=== PATIENT | male | born 1990 | race Caucasian/White ===

== ENCOUNTER 2022-11-17 07:38 | Emergency (ER) | payer BC, SELFPAY ==
[2022-11-17 07:47] VITALS: BP 136/87; PULSE 80; RESP 18; TEMP 36.8; O2SAT 98; BMI 27.3
--- NOTE | 2022-11-17 08:19 | ED.GENADULT ---
HPI - General Adult General Time Seen by Provider: 08:20 Date Seen: 11/17/22 Chief complaint: Extremity Pain/Injury, Upper Stated complaint: left shoulder pain Time Seen by Provider: 11/17/22 08:08 Source: patient Mode of arrival: ambulatory Limitations: no limitations History of Present Illness HPI narrative: Patient is a 32 year old male presenting emergency department for left shoulder pain. He says he woke up this morning with the discomfort. He says of intermittent sharp pain that seems to occur with random movements any cannot specify certain actions that causes the pain to occur. At rest he says there is some soreness. States is all over to his left shoulder and the shooting pains will move around the shoulder depending on the movement. 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 Denies any injuries to the shoulder that he is aware of. He has never had issues with this shoulder in the past. Says the pain sometimes does radiate to his chest but mostly his left upper chest right underneath his collarbone. He has previously broken collarbone several years ago. Denies shortness of breath, lightheadedness, dizziness, numbness, weakness. States he took some Tylenol and 400 mg of ibuprofen over 3 hours ago Related Data Home Medications Medication Instructions Recorded Confirmed No Known Home Medications 11/17/22 11/17/22 Allergies Allergy/AdvReac Type Severity Reaction Status Date / Time amoxicillin AdvReac Intermediate Rash Verified 11/17/22 07:47 Review of Systems Status of ROS: Reports: 10 or more systems reviewed and unremarkable except as noted in History and below PFSH PFSH Social History Smoking Status: Never smoker How often do you have a drink containing alcohol: 2-4 times a month AUDIT-C Alcohol total score: 2 Non-prescribed substance use: denies use Exam Narrative: Exam Narrative: Const: Well-nourished, Well-developed, in mild distress Eyes: PERRL, no conjunctival injection, and symmetrical lids ENMT: Atraumatic external nose and ears. Moist mucous membranes. Neck: Symmetric, trachea midline, No thyromegaly. CVS: RRR, No murmurs or gallops. Peripheral pulses 2+ and equal in all extremities RESP: Unlabored respiratory effort. Clear to auscultation bilaterally. GI: Nontender/Nondistended, No rebound or guarding. MSK:Extremities w/o deformity, Normal Active ROM, no tenderness to palpation, was able to elicit discomfort when releasing the empty can test Skin: Warm, Dry. No rashes or lesions. Neuro: Normal Muscle tone, No focal neurological deficits. Psych: Awake, Alert, & Oriented x3. Appropriate mood and affect. Const: Vital Signs, click to edit/add: Vital Signs - 24 hr 11/17/22 07:47 11/17/22 08:41 Temperature 98.3 F Pulse Rate [Pulse Oximeter] 80 74 Respiratory Rate 18 16 [facility] 136/87 Pulse Oximetry 98 96 Oxygen Delivery Me thod Room Air Room Air Course Vital Signs Vital signs: Initial Vital Signs Temperature 98.3 F 11/17/22 07:47 Temperature Source Temporal Artery Scan 11/17/22 07:47 Pulse Rate 80 11/17/22 07:47 Respiratory Rate 18 11/17/22 07:47 Blood Pressure 136/87 11/17/22 07:47 Blood Pressure Mean 103 11/17/22 07:47 Blood Pressure Position Semi-Fowlers 11/17/22 07:47 Pulse Oximetry 98 11/17/22 07:47 Oxygen Delivery Method Room Air 11/17/22 07:47 Vital Signs Temperature 98.3 F 11/17/22 07:47 Pulse Rate 80 11/17/22 07:47 Respiratory Rate 18 11/17/22 07:47 Blood Pressure 136/87 11/17/22 07:47 Pulse Oximetry 98 11/17/22 07:47 Oxygen Delivery Method Room Air 11/17/22 07:47 Temperature 98.3 F 11/17/22 07:47 Pulse Rate 74 11/17/22 08:41 Respiratory Rate 16 11/17/22 08:41 Blood Pressure 136/87 11/17/22 07:47 Pulse Oximetry 96 11/17/22 08:41 Oxygen Delivery Method Room Air 11/17/22 08:41 Medical Decision Making MDM Narrative Medical decision making narrative: Patient is a 32-year-old male presenting for left shoulder pain. He does state he has some chest pain but all the pain he is having some left upper chest right below his collarbone and uses all the pain is coming from his shoulder. 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 No other recent heavy lifting. He has discomfort to the shoulder but he cannot state any specific actions that make it worse and he states it feels more like random movements will cause the pain. No numbness or weakness. They did do an EKG for his chest pain was showed no concerning abnormalities. Rest of the story does not sound to be cardiac in nature at all in sounds like all his minimal chest pain as radiating from the left shoulder I do not believe a further workup of this is necessary at this time. Will moving his shoulder I was able to elicit some discomfort and he did notice the worst was after releasing the empty can test. It does sound like he is having some tendonitis in a dose of Toradol was given. X-ray of the left shoulder was ordered. X-ray of the shoulder shows a mildly widened AC joint. It is unclear if this is from a previous injury since he has previously broken the collarbone but is nonspecific at this time. It is consistent with his symptoms. He has never been told he had a widened AC joint in the past. No known recent injuries to the shoulder. Patient's pain did not improve with the Toradol but he is otherwise doing well and discharged home. I informed him that if his symptoms continue follow-up with orthopedics. I also given a sling and tones only use it if her shoulder is giving very fatigued and sore otherwise he needs to keep the shoulder active. Imaging Data Left shoulder x-ray: Radiologist's impression: Indication: Pain Technique: Three views Comparison: None Findings: Chronic healed fracture deformity of the mid left clavicle. Slightly widened acromioclavicular distance with normal alignment of lateral clavicle with the acromion. Normal coracoclavicular distance. No acute fracture or dislocation. No specific soft tissue abnormality. Impression: No acute fracture or dislocation. Chronic healed left clavicular fracture deformity. Slightly widened acromioclavicular distance, nonspecific. Recommend clinical correlation as to possible injury involving the acromioclavicular joint. Consider orthopedic referral if there is ongoing clinical concern. ECG Data Attestation: I personally reviewed and interpreted this ECG as follows: (Normal sinus rhythm rate of 78 beats per minute, normal intervals, normal axis, no ST or T-wave abnormalities) Prior ECG tracings: not available for review Discharge Plan Discharge Clinical Impression: Acute shoulder pain Qualifiers: Laterality: left Qualified Code(s): M25.512 - Pain in left shoulder Patient Disposition: Home, Self-Care Condition: Stable Instructions: Shoulder Pain (ED) Additional Instructions: Follow-up with orthopedics if the symptoms continue. Take Tylenol and ibuprofen for pain. Your x-ray showed they do might have a widened AC joint but this is nonspecific it is unclear if this is acute or chronic. We will give you a sling to use but only use the sling if you shoulder has been going very fatigued and sore otherwise is important to keep the shoulder mobile Prescriptions: No Action No Known Home Medications Follow Up/Referrals: Provider,Not a Local [Primary Care Provider] - Stand Alone Forms: dINK Info Instructions
--- NOTE | 2022-11-17 08:20 | XR_ITS ---
Final Report Patient: ANA VICK Facility:?[facility] Patient ID:?[id number] Site Patient ID:?[id number]. Site :?[id number] Study:?XRay Shoulder Left 3 VIEW-11/17/2022 8:33:57 AM Ordering Physician:?Taras Ambrose Final Report: Indication: Pain Technique: Three views Comparison: None Findings: Chronic healed fracture deformity of the mid left clavicle. Slightly widened acromioclavicular distance with normal alignment of lateral clavicle with the acromion. Normal coracoclavicular distance. No acute fracture or dislocation. No specific soft tissue abnormality. Impression: No acute fracture or dislocation. Chronic healed left clavicular fracture deformity. Slightly widened acromioclavicular distance, nonspecific. Recommend clinical correlation as to possible injury involving the acromioclavicular joint. Consider orthopedic referral if there is ongoing clinical concern. Dictated by Jer Jimenez MD @ 11/17/2022 9:10:19 AM (Electronic Signature)
[2022-11-17] MEDS: KETOROLAC 30 MG/ML inj IM (08:27)
[2022-11-17 08:41] VITALS: PULSE 74; RESP 16; O2SAT 96
== END 2022-11-17 09:59 | disposition home or self-care (01) ==
PROVIDERS: Emergency Provider Student in an Organized Health Care Education/Training Program
DX: M25.512 Pain in left shoulder (principal)
CPT/HCPCS: 73030; 96372; 99282; 99284; J1885